=== PATIENT | female | born 1990 | race African-American/Black ===

== ENCOUNTER 2016-05-13 10:08 | Emergency (ER) | payer OTHER ==
[~2016-05-13] VITALS: Ht 160 cm; Wt 74.0 kg
[2016-05-13 10:19] VITALS: Ht 160 cm; Wt 74.0 kg
--- NOTE | 2016-05-13 13:42 | RADRPT ---
PROCEDURE: XR Knee. CLINICAL INDICATION: Right knee pain TECHNIQUE: 3 images of the right knee are available for review. COMPARISON: None available FINDINGS: There is no acute fracture. Alignment is normal. Joint spaces are preserved. Soft tissues are grossly unremarkable. IMPRESSION: 1. No radiographic evidence of acute osseous abnormality of the right knee. RPTAT: UU .Timothy Fitzgerald MD, MD Date Time Electronically viewed and signed by .Timothy Fitzgerald MD, on 05/13/2016 13:42 .K/
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
[2016-05-13] MEDS ORDERED: IBUP-1542 PO (15:13)
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
== END 2016-05-13 16:29 | disposition home or self-care (01) ==
LOC: FTE 10:08
DX: S89.91XA Unspecified injury of right lower leg, initial encounter (principal); S49.91XA Unspecified injury of right shoulder and upper arm, initial encounter; W18.39XA Other fall on same level, initial encounter; Y92.9 Unspecified place or not applicable
CPT/HCPCS: 73030; 73562; 73590; Z7502